=== PATIENT | female | born 1945 | race Caucasian/White ===

== ENCOUNTER → 2016-11-09 | Outpatient (CLI) | payer MEDICARE, BC ==
--- NOTE | 2016-11-10 11:25 | MM ---
Reason for exam: screening (asymptomatic). Last mammogram was performed 1 year ago. History: Patient is postmenopausal and history of other cancer. Family history of breast cancer in paternal aunt at age 40 and breast cancer in paternal grandmother at age 80. Benign stereotactic core biopsy of the right breast, November 05, 2004. Benign stereotactic core biopsy of the right breast, December 14, 2001. Benign excisional biopsy of the left breast. Benign excisional biopsy of the right breast. Took estrogen for 12 years. Physical Findings: A clinical breast exam by your physician is recommended on an annual basis and results should be correlated with mammographic findings. MG 3D Screening Mammo W/Cad Bilateral CC and MLO view(s) were taken. Prior study comparison: November 03, 2015, bilateral MG 3d diag mammo w/cad LUIS. September 19, 2014, bilateral MG screening mammo w CAD. The breast tissue is extremely dense which could obscure a lesion on mammography. Previous mammotome biopsy in the right breast x 2. No significant changes when compared with prior studies. ASSESSMENT: Benign, BI-RAD 2 RECOMMENDATION: Routine screening mammogram of both breasts in 1 year.
== END | disposition home or self-care (01) ==
LOC: RADMAMWWP 13:39
PROVIDERS: ATTEND Family Medicine
DX: Z12.31 Encounter for screening mammogram for malignant neoplasm of breast (principal)
CPT/HCPCS: 77063; G0202

== ENCOUNTER 2017-01-11 07:21 | Day surgery (SDC) | payer MEDICARE, BC ==
[2017-01-09 14:51] VITALS: BMI 27.3
[~2017-01-11 07:21] MED LIST: LACTATED RINGERS 1,000 ML IV SCH; LIDOCAINE 1% 20 ML VIAL (10MG/ML) FOR IV START INTRADERMA PRN
[2017-01-11 07:35] VITALS: TEMP 97
[2017-01-11] MEDS ORDERED: LIDOCAINE 1% INJ 10MG/ML (20 ML MDV) ONE (08:20)
[2017-01-11] MEDS ORDERED: GLYCOPYRROLATE 0.2 MG/ML 2 ML VIAL ONE (08:20)
[2017-01-11] MEDS ORDERED: PROPOFOL 10 MG/ML 20 ML VIAL IV ONE (08:20)
--- NOTE | 2017-01-11 08:33 | P.PCN ---
Date of Procedure: 01/11/17 Procedure(s) Performed: BRIEF HISTORY: Patient is a 71-year-old, pleasant, white female, scheduled for an upper endoscopy with possible dilation as a part of evaluation of long- standing history of GERD as well as intermittent dysphagia to solids for the last few months duration. She is been on Prilosec 20 mg daily with some relief in her heartburn.. PROCEDURE PERFORMED: Esophagogastroduodenoscopy and biopsy and dilation. PREOPERATIVE DIAGNOSIS: GERD and intermittent dysphagia to solids. IV sedation per anesthesia. PROCEDURE: After informed consent was obtained, the patient was brought into the endoscopy unit. IV sedation was administered by Anesthesia under continuous monitoring. Initially the Olympus GIF-140 video endoscope was inserted into the mouth. Esophagus intubated without any difficulty. It was gradually advanced into the stomach and duodenum and carefully examined. The bulb and the second part of the duodenum appeared normal. The scope at this time was withdrawn to the stomach, adequately insufflated with air, and upon careful examination, mucosa of the antrum, body, cardia and the fundus appeared normal. The scope was then withdrawn into the esophagus. A small sliding Hiatal hernia noted. The GE junction was located at 39 cm from the incisors. There was a distal esophageal Schatzki's ring noted and this was dilated using 15-18 mm TTS balloon for 1 minute. The esophagus appeared normal. Sr. done from esophagus to rule out eosinophilic esophagitis. There were no erosions or ulcerations seen and the patient tolerated the procedure well. IMPRESSION: 1. Distal esophageal Schatzki's ring status post balloon dilation using 15 mm TTS balloon as described. 2. Small hiatal hernia. RECOMMENDATIONS: The findings of this examination were discussed with the patient as well as a family. She was advised to follow with the biopsy results. In the meantime she'll continue with Prilosec 20 mg daily and follow antireflux measures..
[2017-01-11 08:38] VITALS: RESP 16
[2017-01-11 08:55] VITALS: BP 122/64; PULSE 64
== END 2017-01-11 09:14 | disposition home or self-care (01) ==
LOC: ORWHC2ENDO 07:21
PROVIDERS: ATTEND Internal Medicine Gastroenterology
DX: K22.2 Esophageal obstruction (principal); K44.9 Diaphragmatic hernia without obstruction or gangrene; K21.9 Gastro-esophageal reflux disease without esophagitis; I10 Essential (primary) hypertension; I48.91 Unspecified atrial fibrillation; E07.9 Disorder of thyroid, unspecified; Z79.82 Long term (current) use of aspirin; Z79.899 Other long term (current) drug therapy; Z88.5 Allergy status to narcotic agent
CPT/HCPCS: 88305; 43239; 43249; J2001; J2704; C1726

== ENCOUNTER → 2018-04-19 | Outpatient (CLI) | payer MEDICARE, BC ==
--- NOTE | 2018-04-20 13:12 | BD ---
EXAMINATION TYPE: Axial Bone Density DATE OF EXAM: 04/19/2018 COMPARISON: 11.03.2015 CLINICAL HISTORY: 73 YR OLD FEMALE.....ICD-10 CODE: Z78.0 MENOPAUSAL STATE Height: 59.5 Weight: 140 FRAX RISK QUESTIONS: History of Fracture in Adulthood: YES RISK FACTORS HISTORY OF: HX OF FOOT FXs SINCE AGE 50 Surgery to Spine YES, LUMBAR FUSION, L4 AND L5 AT AGE 71 Diet low in dairy products/other sources of calcium: NO Postmenopausal woman: YES, AT AGE 50 Take estrogen and/or progesterone medications: IN THE PAST...FOR 12 YRS MEDICATIONS: Thyroid Medications: YES, SYNTHROID, FOR ABOUT 1 YR Additional Medications: CALCIUM, MAGNESIUM, BP MEDS, XANAX PRN, VIT D Additional History: HYPERTENSION, BACK TROUBLE EXAM MEASUREMENTS: Bone mineral densitometry was performed using the [employer] System. SPINE NOT SCANNED, FUSION Bone mineral density about the R hip (g/cm2): 1.155 Bone mineral density about the L hip (g/cm2): 1.193 T Score values are as follows: -----R Neck: -0.2 -----L Neck: 0.0 -----R Total: 1.2 -----L Total: 1.5 Bone mineral density has: Increased 0.1% since study of: 11.03.2015 Bone mineral density about the L Wrist (g/cm2): 0.634 T Score values are as follows: -----Dist. R+U: 0.0 -----Prox. R+U: -0.7 -----Radius total: -0.5 Bone mineral density FIRST SCAN OF HER FOREARM FRAX%s: THERE IS A 12.2% CHANCE OF A MAJOR OSTEOPOROTIC FX AND A 0.9% FOR HIP FX.....PROBABILITY OF FX IN 10 YRS TIME IMPRESSION: Normal (Values between +1 and -1 indicate normal bone mass). Consider repeating this study in 5 years or sooner if there is some new clinical indication. NOTE: T-SCORE=SD OF THE YOUNG ADULT MEAN.
--- NOTE | 2018-04-24 09:11 | MM ---
Reason for exam: screening (asymptomatic). Last mammogram was performed 1 year and 5 months ago. History: Patient is postmenopausal and history of other cancer. Family history of breast cancer in paternal aunt at age 40 and breast cancer in paternal grandmother at age 80. Benign stereotactic core biopsy of the right breast, November 05, 2004. Benign stereotactic core biopsy of the right breast, December 14, 2001. Benign excisional biopsy of the left breast. Benign excisional biopsy of the right breast. Took estrogen for 12 years. Physical Findings: A clinical breast exam by your physician is recommended on an annual basis and results should be correlated with mammographic findings. MG 3D Screening Mammo W/Cad Bilateral CC and MLO view(s) were taken. Prior study comparison: November 09, 2016, bilateral MG 3d screening mammo w/cad. November 03, 2015, bilateral MG 3d diag mammo w/cad LUIS. The breast tissue is heterogeneously dense. This may lower the sensitivity of mammography. Post biopsy change x 2 on the right. No significant changes when compared with prior studies. ASSESSMENT: Negative, BI-RAD 1 RECOMMENDATION: Routine screening mammogram of both breasts in 1 year.
== END | disposition home or self-care (01) ==
LOC: RADMAMWWP 14:00
PROVIDERS: ATTEND Family Medicine
DX: Z12.31 Encounter for screening mammogram for malignant neoplasm of breast (principal); Z78.0 Asymptomatic menopausal state
CPT/HCPCS: 77063; 77067; 77080

== ENCOUNTER → 2018-12-07 | Outpatient (CLI) | payer MEDICARE, BC ==
--- NOTE | 2018-12-08 08:31 | MR ---
MR left hip HISTORY: Left hip pain Multiplanar multisequence imaging through the pelvis with small [id number] images through the left hip No comparisons There is abnormal signal at the expected insertion of the gluteus tendons at the greater trochanter. Fluid signal is noted, hyperintensity and T2-weighted sequences. Bone marrow signal is maintained. No evident joint effusion. Degenerative disc changes are noted incidentally in the lumbar spine, there is artifact due to patient's posterior fusion. No significant free fluid within the pelvis. Uterus an d adnexal structures are not seen. Urinary bladder is unremarkable. Articular cartilage signal is irena ntained. Artifact is present. Difficult to exclude labral tear on this noncontrast exam. No adenopath y. IMPRESSION: Findings compatible with gluteus tendon tears at the expected site of insertion on the gr eater trochanter, trochanteric bursitis
== END ==
LOC: RADMRIMAIN 08:19
PROVIDERS: ATTEND Midwife
DX: M70.62 Trochanteric bursitis, left hip (principal)

== ENCOUNTER → 2019-05-02 | Outpatient (CLI) | payer MEDICARE, BC ==
--- NOTE | 2019-05-07 09:40 | MM ---
Reason for exam: screening (asymptomatic). Last mammogram was performed 1 year ago. History: Patient is postmenopausal and history of other cancer. Family history of breast cancer in paternal aunt at age 40 and breast cancer in paternal grandmother at age 80. Benign stereotactic core biopsy of the right breast, November 05, 2004. Benign stereotactic core biopsy of the right breast, December 14, 2001. Benign excisional biopsy of the left breast. Benign excisional biopsy of the right breast. Took estrogen for 12 years. Physical Findings: A clinical breast exam by your physician is recommended on an annual basis and results should be correlated with mammographic findings. MG 3D Screening Mammo W/Cad Bilateral CC and MLO view(s) were taken. Prior study comparison: April 19, 2018, bilateral MG 3d screening mammo w/cad. November 09, 2016, bilateral MG 3d screening mammo w/cad. The breast tissue is extremely dense which could obscure a lesion on mammography. Previous mammotome biopsy in the right breast. No significant changes when compared with prior studies. ASSESSMENT: Benign, BI-RAD 2 RECOMMENDATION: Routine screening mammogram of both breasts in 1 year.
== END | disposition home or self-care (01) ==
LOC: RADMAMWWP 09:10
PROVIDERS: ATTEND Family Medicine
DX: Z12.31 Encounter for screening mammogram for malignant neoplasm of breast (principal)
CPT/HCPCS: 77063; 77067

== ENCOUNTER 2019-07-28 01:33 | Emergency (ER) | payer MEDICARE, BC ==
[2019-07-28 01:38] VITALS: TEMP 97.6
--- NOTE | 2019-07-28 02:23 | ED ---
Arrhythmia/Palpitations HPI - General Chief Complaint: Arrhythmia/Palpitations Stated Complaint: A Fib Time Seen by Provider: 07/28/19 01:40 Source: patient Mode of arrival: ambulatory Limitations: no limitations - History of Present Illness Initial Comments: This patient is 74-year-old woman who presents to be evaluated for which she believes is a recurrence of atrial fibrillation. The patient has had previous episodes of atrial fibrillation and has seen cardiology. She states that tonight approximately 3 hours ago she felt her heart start skipping beats and beating irregularly. She had taken an extra dose of metoprolol per her physician's instruction. When the symptoms did not improve she felt she should be evaluated here. Patient denies chest pain. No other symptoms. MD Complaint: palpitations, irregular heart beat Onset/Timin -: hour(s) Context: occurred during rest Arrhythmia History: atrial fibrillation Associated Symptoms: denies other symptoms Treatments Prior to Arrival: beta-yolanda - Related Data Home Medications Medication Instructions Recorded Confirmed ALPRAZolam [Xanax] 0.5 mg PO HS 03/28/14 01/11/17 Hydrochlorothiazide [Hydrodiuril] 50 mg PO DAILY 03/28/14 01/11/17 Metoprolol Tartrate [Lopressor] 50 mg PO BID 03/28/14 01/11/17 Aspirin 325 mg PO HS 08/12/14 01/11/17 Calcium + Magnesium 1 tab PO BID 01/09/17 01/11/17 Cholecalciferol [Vitamin D3] 5,000 unit PO DAILY 01/09/17 01/11/17 Co Q-10 Tab 220 mg PO DAILY 01/09/17 01/11/17 Digoxin [Digitek] 125 mcg PO DAILY 01/09/17 01/11/17 Levothyroxine Sodium [Synthroid] 50 mcg PO DAILY 01/09/17 01/11/17 Omeprazole [PriLOSEC] 40 mg PO DAILY 01/09/17 01/11/17 Potassium Chloride [K-Tab ER] 10 meq PO DAILY 01/09/17 01/11/17 Provitality 1 tab PO DAILY 01/09/17 01/11/17 [place] Oil 1 tab PO BID 01/09/17 01/11/17 Sennosides [Senokot] 25.8 mg PO DAILY 01/09/17 01/11/17 Turmeric(Dose Unknown) 4 cap PO DAILY 01/09/17 01/11/17 Allergies Allergy/AdvReac Type Severity Reaction Status Date / Time acetaminophen [From [place]] Allergy Rash/Hives Verified 07/28/19 01:38 hydrocodone [From [place]] Allergy Rash/Hives Verified 07/28/19 01:38 hydromorphone HCl Allergy Rash/Hives Verified 07/28/19 01:38 [From Dilaudid] Review of Systems ROS Statement: Those systems with pertinent positive or pertinent negative responses have been documented in the HPI. ROS Other: All systems not noted in ROS Statement are negative. Constitutional: Denies: fever, chills, weakness Respiratory: Denies: cough, dyspnea Cardiovascular: Reports: palpitations. Denies: chest pain, orthopnea, edema, syncope Gastrointestinal: Denies: abdominal pain, vomiting Genitourinary: Denies: dysuria, hematuria Musculoskeletal: Denies: back pain Skin: Denies: rash Neurological: Denies: headache Past Medical History Past Medical History: Atrial Fibrillation, Cancer, Deep Vein Thrombosis (DVT), GERD/Reflux, Hyperlipidemia, Hypertension, Osteoarthritis (OA), Skin Disorder, Thyroid Disorder Additional Past Medical History / Comment(s): SKIN CANCER History of Any Multi-Drug Resistant Organisms: None Reported Past Surgical History: Adenoidectomy, Breast Surgery, Hysterectomy, Orthopedic Surgery, Tonsillectomy Additional Past Surgical History / Comment(s): demetris breast biopsy(open), trigger finger release- rt thumb, rt carpal tunnel, rt thumb tendon transfer, demetris oophorectomy, demetris salpingectomy, rt shoulder rotator cuff, demetris knee replacement (left x 2 ), lumbar fusion L4-L5 with decompression Past Anesthesia/Blood Transfusion Reactions: Motion Sickness, Postoperative Nausea & Vomiting (PONV) Past Psychological History: No Psychological Hx Reported Smoking Status: Never smoker Past Alcohol Use History: None Reported Past Drug Use History: None Reported - Past Family History Brother(s) Family Medical History: Cancer Sister(s) Family Medical History: Cancer General Exam Limitations: no limitations General appearance: alert, in no apparent distress Head exam: Present: atraumatic, normocephalic Eye exam: Present: normal appearance. Absent: scleral icterus, conjunctival injection ENT exam: Present: normal oropharynx Neck exam: Present: normal inspection Respiratory exam: Present: normal lung sounds bilaterally. Absent: respiratory distress, wheezes, rales, rhonchi, stridor Cardiovascular Exam: Present: irregular rhythm, normal heart sounds. Absent: systolic murmur, diastolic murmur, rubs, gallop GI/Abdominal exam: Present: soft. Absent: distended, tenderness, guarding, rebound, mass Extremities exam: Present: normal inspection, normal capillary refill. Absent: pedal edema, calf tenderness Neurological exam: Present: alert Skin exam: Present: warm, dry, intact, normal color. Absent: rash Course Vital Signs 07/28/19 07/28/19 07/28/19 01:36 01:38 02:38 Temperature 97.6 F Pulse Rate 95 78 75 Respiratory 20 18 Rate Blood Pressure 134/87 116/98 117/72 O2 Sat by Pulse 97 97 97 Oximetry 07/28/19 07/28/19 03:00 04:21 Temperature Pulse Rate 77 59 L Respiratory 18 16 Rate Blood Pressure 118/71 118/66 O2 Sat by Pulse 98 99 Oximetry EKG Findings - EKG Results: EKG: interpreted by ANITRA, normal axis, normal QRS, normal ST/T EKG shows: atrial fibrillation (Rare proximal to 73 bpm) Medical Decision Making - Medical Decision Making Patient 74-year-old woman with. His atrial fibrillation who appears to have had a recurrence. Her initial workup is unremarkable. We were going to administer dose of Sarah and denied when she did spontaneously reverted to sinus rhythm. She declined repeat ECG, and it wants go home. She does seem stable for this. She'll follow with cardiology and return should any symptoms recur. - Lab Data Result diagrams: 07/28/19 01:50 07/28/19 01:50 Lab Results 07/28/19 07/28/19 07/28/19 Range/Units 01:50 01:50 01:50 WBC 8.1 (3.8-10.6) k/uL RBC 5.14 (3.80-5.40) m/uL Hgb 15.1 (11.4-16.0) gm/dL Hct 45.5 (34.0-46.0) % MCV 88.5 (80.0-100.0) fL MCH 29.3 (25.0-35.0) pg MCHC 33.1 (31.0-37.0) g/dL RDW 13.2 (11.5-15.5) % Plt Count 292 (150-450) k/uL Neutrophils % 53 % Lymphocytes % 33 % Monocytes % 8 % Eosinophils % 4 % Basophils % 1 % Neutrophils # 4.3 (1.3-7.7) k/uL Lymphocytes # 2.7 (1.0-4.8) k/uL Monocytes # 0.6 (0-1.0) k/uL Eosinophils # 0.3 (0-0.7) k/uL Basophils # 0.1 (0-0.2) k/uL PT 10.1 (9.0-12.0) sec INR 0.9 (<1.2) APTT 28.0 (22.0-30.0) sec Sodium 141 (137-145) mmol/L Potassium 3.5 (3.5-5.1) mmol/L Chloride 102 (98-107) mmol/L Carbon Dioxide 30 (22-30) mmol/L Anion Gap 9 mmol/L BUN 19 H (7-17) mg/dL Creatinine 0.65 (0.52-1.04) mg/dL Est GFR (CKD-EPI)AfAm >90 (>60 ml/min/1.73 sqM) Est GFR (CKD-EPI)NonAf 88 (>60 ml/min/1.73 sqM) Glucose 108 H (74-99) mg/dL Calcium 10.0 (8.4-10.2) mg/dL Magnesium 1.9 (1.6-2.3) mg/dL Total Bilirubin 0.4 (0.2-1.3) mg/dL AST 24 (14-36) U/L ALT 29 (9-52) U/L Alkaline Phosphatase 97 (38-126) U/L Troponin I (0.000-0.034) ng/mL Total Protein 7.1 (6.3-8.2) g/dL Albumin 4.4 (3.5-5.0) g/dL TSH 8.340 H (0.465-4.680) mIU/L 07/28/19 Range/Units 01:50 WBC (3.8-10.6) k/uL RBC (3.80-5.40) m/uL Hgb (11.4-16.0) gm/dL Hct (34.0-46.0) % MCV (80.0-100.0) fL MCH (25.0-35.0) pg MCHC (31.0-37.0) g/dL RDW (11.5-15.5) % Plt Count (150-450) k/uL Neutrophils % % Lymphocytes % % Monocytes % % Eosinophils % % Basophils % % Neutrophils # (1.3-7.7) k/uL Lymphocytes # (1.0-4.8) k/uL Monocytes # (0-1.0) k/uL Eosinophils # (0-0.7) k/uL Basophils # (0-0.2) k/uL PT (9.0-12.0) sec INR (<1.2) APTT (22.0-30.0) sec Sodium (137-145) mmol/L Potassium (3.5-5.1) mmol/L Chloride (98-107) mmol/L Carbon Dioxide (22-30) mmol/L Anion Gap mmol/L BUN (7-17) mg/dL Creatinine (0.52-1.04) mg/dL Est GFR (CKD-EPI)AfAm (>60 ml/min/1.73 sqM) Est GFR (CKD-EPI)NonAf (>60 ml/min/1.73 sqM) Glucose (74-99) mg/dL Calcium (8.4-10.2) mg/dL Magnesium (1.6-2.3) mg/dL Total Bilirubin (0.2-1.3) mg/dL AST (14-36) U/L ALT (9-52) U/L Alkaline Phosphatase (38-126) U/L Troponin I <0.012 (0.000-0.034) ng/mL Total Protein (6.3-8.2) g/dL Albumin (3.5-5.0) g/dL TSH (0.465-4.680) mIU/L Disposition Clinical Impression: Atrial fibrillation Disposition: HOME SELF-CARE Condition: Good Instructions (If sedation given, give patient instructions): A-fib (Atrial Fibrillation) (DC) Is patient prescribed a controlled substance at d/c from ED?: No Referrals: Mejia Womack MD [Primary Care Provider] - 1-2 days
[2019-07-28 02:29] LABS: Basophils # (A) 0.1 k/uL (0-0.2); Basophils % (A) 1 %; Eosinophils # (A) 0.3 k/uL (0-0.7); Eosinophils % (A) 4 %; HCT 45.5 % (34.0-46.0); HGB 15.1 gm/dL (11.4-16.0); Lymphocytes # (A) 2.7 k/uL (1.0-4.8); Lymphocytes % (A) 33 %; MCH 29.3 pg (25.0-35.0); MCHC 33.1 g/dL (31.0-37.0); MCV 88.5 fL (80.0-100.0); Mean Platelet Volume 7.1; Monocytes # (A) 0.6 k/uL (0-1.0); Monocytes % (A) 8 %; Neutrophils # (A) 4.3 k/uL (1.3-7.7); Neutrophils % (A) 53 %; Platelet Count 292 k/uL (150-450); RBC 5.14 m/uL (3.80-5.40); RDW 13.2 % (11.5-15.5); WBC 8.1 k/uL (3.8-10.6)
--- NOTE | 2019-07-28 02:34 | XR ---
EXAMINATION TYPE: XR chest 1V portable DATE OF EXAM: 07/28/2019 COMPARISON: September 12, 2011 HISTORY: Dysrhythmia TECHNIQUE: Single frontal view of the chest is obtained. FINDINGS: Heart and mediastinum are normal. Lungs are clear. Diaphragm is normal. Bony thorax appear s normal. There are chest leads. IMPRESSION: Normal chest. No change.
[2019-07-28 02:36] LABS: INR 0.9 (<1.2); Prothrombin Time 10.1 sec (9.0-12.0)
[2019-07-28 02:37] LABS: ALT 29 U/L (9-52); AST 24 U/L (14-36); African American GFR (CKD) >90 (>60 ml/min/1.73 sqM); Albumin 4.4 g/dL (3.5-5.0); Alkaline Phosphatase 97 U/L (38-126); Anion Gap 9 mmol/L; Blood Urea Nitrogen 19 mg/dL (7-17); Carbon Dioxide 30 mmol/L (22-30); Chloride 102 mmol/L (98-107); Glucose 108 mg/dL (74-99); Magnesium 1.9 mg/dL (1.6-2.3); Non-African American GFR(CKD) 88 (>60 ml/min/1.73 sqM); Potassium 3.5 mmol/L (3.5-5.1); Sodium 141 mmol/L (137-145); Total Bilirubin 0.4 mg/dL (0.2-1.3); Total Protein 7.1 g/dL (6.3-8.2)
[2019-07-28] MEDS ORDERED: FLECAINIDE 50 MG TAB PO STA (03:44)
[2019-07-28 04:22] VITALS: BP 118/66; PULSE 59; RESP 16
== END 2019-07-28 04:23 | disposition home or self-care (01) ==
LOC: EC 01:33
DX: I48.91 Unspecified atrial fibrillation (principal); I10 Essential (primary) hypertension; E78.5 Hyperlipidemia, unspecified; E07.9 Disorder of thyroid, unspecified; M19.90 Unspecified osteoarthritis, unspecified site; K21.9 Gastro-esophageal reflux disease without esophagitis; Z79.82 Long term (current) use of aspirin; Z79.890 Hormone replacement therapy; Z79.899 Other long term (current) drug therapy; Z88.5 Allergy status to narcotic agent; Z88.6 Allergy status to analgesic agent; Z86.718 Personal history of other venous thrombosis and embolism; Z85.828 Personal history of other malignant neoplasm of skin; Z96.653 Presence of artificial knee joint, bilateral; Z98.1 Arthrodesis status
CPT/HCPCS: 36415; 71045; 80053; 83735; 84443; 84484; 85025; 85610; 85730; 93005; 99285

== ENCOUNTER → 2020-05-07 | Outpatient (CLI) | payer MEDICARE, BC ==
--- NOTE | 2020-05-07 12:38 | ECHOF ---
Referral Reason:I48.91 Atrial fibirlation MEASUREMENTS -------- HEIGHT: 152.4 cm WEIGHT: 65.8 kg BP: RVIDd: 2.9 cm (< 3.3) IVSd: 1.0 cm (0.6 - 1.1) LVIDd: 4.0 cm (3.9 - 5.3) LVPWd: 0.9 cm (0.6 - 1.1) IVSs: 1.1 cm LVIDs: 3.0 cm LVPWs: 1.1 cm LA Diam: 4.1 cm (2.7 - 3.8) LAESV Index (A-L): 30.30 ml/m Ao Diam: 2.6 cm (2.0 - 3.7) AV Cusp: 1.6 cm (1.5 - 2.6) LA Diam: 3.9 cm (2.7 - 3.8) MV EXCURSION: 17.918 mm (> 18.000) MV EF SLOPE: 52 mm/s (70 - 150) EPSS: 0.4 cm MV E Cliff: 0.63 m/s MV DecT: 186 ms MV A Cliff: 0.92 m/s MV E/A Ratio: 0.69 RAP: 5.00 mmHg RVSP: 22.27 mmHg FINDINGS -------- Sinus rhythm. This was a technically good study. LV size, wall thickness and systolic function are normal, with an EF greater than 55%. The left mercy tricular size is normal. The right ventricle is normal in size. The left atrium is mildly dilated. LA is midly dilated 29-33ml/m2. The right atrial size is normal. The aortic valve is trileaflet, and appears structurally normal. No aortic stenosis or regurgitation. Mild mitral regurgitation is present. Mild tricuspid regurgitation present. Right ventricular systolic pressure is normal at < 35 mmHg. There is no pulmonic regurgitation present. The aortic root size is normal. There is no pericardial effusion. CONCLUSIONS -------- 1. LV size, wall thickness and systolic function are normal, with an EF greater than 55%. 2. The left ventricular size is normal. 3. The right ventricle is normal in size. 4. The left atrium is mildly dilated. 5. LA is midly dilated 29-33ml/m2. 6. The right atrial size is normal. 7. Mild mitral regurgitation is present. 8. Mild tricuspid regurgitation present. 9. There is no pulmonic regurgitation present. 10. The aortic root size is normal. JOWL TRIMMER: America Viveros RDCS
== END | disposition home or self-care (01) ==
LOC: RADECHMAIN 11:24
PROVIDERS: ATTEND Internal Medicine Cardiovascular Disease
DX: I08.1 Rheumatic disorders of both mitral and tricuspid valves (principal)
CPT/HCPCS: 93306

== ENCOUNTER → 2020-06-19 | Outpatient (CLI) | payer MEDICARE, BC ==
--- NOTE | 2020-06-22 11:26 | MM ---
Reason for exam: screening (asymptomatic). Last mammogram was performed 1 year and 2 months ago. History: Patient is postmenopausal and history of other cancer. Family history of breast cancer in paternal aunt at age 40 and breast cancer in paternal grandmother at age 80. Benign stereotactic core biopsy of the right breast, November 05, 2004. Benign stereotactic core biopsy of the right breast, December 14, 2001. Benign excisional biopsy of the left breast. Benign excisional biopsy of the right breast. Took estrogen for 12 years. Physical Findings: A clinical breast exam by your physician is recommended on an annual basis and results should be correlated with mammographic findings. MG 3D Screening Mammo W/Cad Bilateral CC and MLO view(s) were taken. Prior study comparison: May 02, 2019, bilateral MG 3d screening mammo w/cad. April 19, 2018, bilateral MG 3d screening mammo w/cad. The breast tissue is heterogeneously dense. This may lower the sensitivity of mammography. Previous mammotome biopsy in the right breast x 2. There is chronic nodularity in the right breast laterally at the site of a biopsy clip. Scattered round and punctate calcifications are unchanged. No significant changes when compared with prior studies. ASSESSMENT: Benign, BI-RAD 2 RECOMMENDATION: Routine screening mammogram of both breasts in 1 year.
== END | disposition home or self-care (01) ==
LOC: RADMAMWWP 11:00
PROVIDERS: ATTEND Family Medicine
DX: Z12.31 Encounter for screening mammogram for malignant neoplasm of breast (principal)
CPT/HCPCS: 77063; 77067

== ENCOUNTER → 2021-07-09 | Outpatient (CLI) | payer MEDICARE ==
--- NOTE | 2021-07-12 10:45 | MM ---
Reason for exam: screening (asymptomatic). Last mammogram was performed 1 year and 1 month ago. History: Patient is postmenopausal and history of other cancer. Family history of breast cancer in paternal aunt at age 40 and breast cancer in paternal grandmother at age 80. Benign stereotactic core biopsy of the right breast, November 05, 2004. Benign stereotactic core biopsy of the right breast, December 14, 2001. Benign excisional biopsy of the left breast. Benign excisional biopsy of the right breast. Took hormonal contraceptives for 35 years. Took estrogen for 12 years. Physical Findings: A clinical breast exam by your physician is recommended on an annual basis and results should be correlated with mammographic findings. MG 3D Screening Mammo W/Cad Bilateral CC and MLO view(s) were taken. Prior study comparison: June 19, 2020, bilateral MG 3d screening mammo w/cad. May 02, 2019, bilateral MG 3d screening mammo w/cad. The breast tissue is heterogeneously dense. This may lower the sensitivity of mammography. Benign appearing bilateral calcifications. Previous mammotome biopsy in the right breast. There is chronic nodularity in the right breast, stable. Stable post biopsy changes. ASSESSMENT: Benign, BI-RAD 2 RECOMMENDATION: Routine screening mammogram of both breasts in 1 year.
== END | disposition home or self-care (01) ==
LOC: RADMAMWWP 16:21
PROVIDERS: ATTEND Nurse Practitioner
DX: Z12.31 Encounter for screening mammogram for malignant neoplasm of breast (principal)
CPT/HCPCS: 77063; 77067

== ENCOUNTER → 2022-07-11 | Outpatient (CLI) | payer MEDICARE ==
--- NOTE | 2022-07-12 17:18 | MM ---
Reason for Exam: Screening (asymptomatic). Last screening mammogram was performed 12 month(s) ago. Patient History: Menarche at age 11. First Full-Term at age 23. Left ovary removed at age 69. Right ovary removed at age 69. Hysterectomy at age 37. Postmenopausal. Patient has history of breast feeding. Patient used Estrogen for 12 years. Patient used Hormonal Contraceptives for 35 years. Benign Excisional Biopsy on the right side. Benign Excisional Biopsy on the left side. 11/05/2004, Benign Stereotactic Core Biopsy on the right side. 12/14/2001, Benign Stereotactic Core Biopsy on the right side. Paternal grandmother had breast cancer, age 80. Paternal aunt had breast cancer, age 40. Risk Values: Becka 5 year model risk: 2.6%. NCI Lifetime model risk: 4.9%. Prior Study Comparison: 05/04/1995 Screening Mammogram, Unknown. 04/07/2014 Left Diagnostic Mammogram, [facility]. 09/19/2014 Bilateral Screening Mammogram, [facility]. 11/03/2015 Bilateral Diagnostic Mammogram, [facility]. 11/09/2016 Bilateral Screening Mammogram, [facility]. 04/19/2018 Bilateral Screening Mammogram, [facility]. 05/02/2019 Bilateral Screening Mammogram, [facility]. 06/19/2020 Bilateral Screening Mammogram, [facility]. 07/09/2021 Bilateral Screening Mammogram, [facility]. Tissue Density: The breast tissue is heterogeneously dense. This may lower the sensitivity of mammography. Findings: Analyzed By CAD. Complex pattern appears stable. Core markers within the right breast. There are a few scattered benign appearing calcifications present. Vascular calcification is present bilaterally. There may be some developing distortion within the left medial lateral oblique view. Additional diagnostic imaging with compression mediolateral view is recommended. Overall Assessment: Incomplete: need additional imaging evaluation, BI-RAD 0 Management: Diagnostic Mammogram of the left breast. A negative mammogram report should not preclude additional follow up of suspicious palpable abnormalities. Patient should continue monthly self breast exam. A clinical breast exam by your physician is recommended on an annual basis and results should be correlated with mammographic findings. Electronically signed and approved by: Ran Leal D.O. Radiologis
== END | disposition home or self-care (01) ==
LOC: RADMAMWWP 10:02
PROVIDERS: ATTEND Family Medicine
DX: Z12.31 Encounter for screening mammogram for malignant neoplasm of breast (principal); Z80.3 Family history of malignant neoplasm of breast; Z78.0 Asymptomatic menopausal state; Z98.890 Other specified postprocedural states
CPT/HCPCS: 77063; 77067

== ENCOUNTER → 2022-07-15 | Outpatient (CLI) | payer MEDICARE ==
--- NOTE | 2022-07-15 15:22 | MM ---
Reason for Exam: Additional evaluation requested from abnormal screening. Last screening mammogram was performed less than 1 month ago. Patient History: Menarche at age 11. First Full-Term at age 23. Left ovary removed at age 69. Right ovary removed at age 69. Hysterectomy at age 37. Postmenopausal. Patient has history of breast feeding. Patient used Estrogen for 12 years. Patient used Hormonal Contraceptives for 35 years. Benign Excisional Biopsy on the right side. Benign Excisional Biopsy on the left side. 11/05/2004, Benign Stereotactic Core Biopsy on the right side. 12/14/2001, Benign Stereotactic Core Biopsy on the right side. Paternal grandmother had breast cancer, age 80. Paternal aunt had breast cancer, age 40. Risk Values: Becka 5 year model risk: 2.6%. NCI Lifetime model risk: 4.9%. Prior Study Comparison: 06/19/2020 Bilateral Screening Mammogram, [facility]. 07/09/2021 Bilateral Screening Mammogram, [facility]. 07/11/2022 Bilateral MG 3D screening mammo w/cad, [facility]. Tissue Density: Left: The breast tissue is heterogeneously dense. This may lower the sensitivity of mammography. Findings: Analyzed By CAD. No distinct mass or distortion seen. Overall Assessment: Negative, BI-RAD 1 Management: Screening Mammogram of both breasts in 1 year. A clinical breast exam by your physician is recommended on an annual basis and results should be correlated with mammographic findings. This exam should not preclude additional follow-up of suspicious palpable abnormalities. Results were given to the patient verbally at the time of exam. Electronically signed and approved by: Blas Kasper M.D. Radiologis
== END | disposition home or self-care (01) ==
LOC: RADMAMWWP 14:51
PROVIDERS: ATTEND Family Medicine
DX: R92.8 Other abnormal and inconclusive findings on diagnostic imaging of breast (principal); Z78.0 Asymptomatic menopausal state; Z80.3 Family history of malignant neoplasm of breast; Z90.721 Acquired absence of ovaries, unilateral
CPT/HCPCS: 77065; G0279; 77061

== ENCOUNTER → 2022-09-15 | Outpatient (CLI) | payer MEDICARE ==
--- NOTE | 2022-09-15 18:58 | BD ---
EXAMINATION TYPE: Axial Bone Density DATE OF EXAM: 09/15/2022 COMPARISON: 04/19/2018 CLINICAL HISTORY: 77 years year old Female. ICD-10 CODE: Z78.0 ASYMPTOMATIC MENOPAUSAL Height: 59.5 Weight: 152 LBS FRAX RISK QUESTIONS: History of Fracture in Adulthood: RT WRIST AGE 12; RT FOOT AGE 67; Secondary Osteoporosis: 3. Menopause before 45: PARTIAL HYST AGE 37; TOTAL HYST AGE 67 RISK FACTORS HISTORY OF: History of Wrist Fracture: RT WRIST AGE 12 Surgery to Spine: FUSION L3-4 AGE 71 Active: YES Postmenopausal woman: PARTIAL HYST AGE 37; TOTAL HYST AGE 67 Take estrogen and/or progesterone medications: NOT NOW How lon YEARS MEDICATIONS: Thyroid Medications: YES Which medication: Levothyroxine How Lon YEARS Additional Medications: CALCIUM, VIT D, LEVOTHYROXINE,ELIQUIS, HCTZ, LOPRESSOR, LISINOPRIL, TURMERIC , SALMON OIL, MULTI VIT, SENNA, BLOOD PRESSURE , EYE SUPPLEMENT EXAM MEASUREMENTS: Bone mineral densitometry was performed using the [employer] System. L SPINE FUSION Bone mineral density about the R hip (g/cm2): 1.009 Bone mineral density about the L hip (g/cm2): 1.034 T Score values are as follows: -----R Neck: -0.2 -----L Neck: 0.0 -----R Total: 0.9 -----L Total: 1.2 Bone mineral density has: Decreased -2.5% since study of: 04/19/2018 Bone mineral density about the L Wrist (g/cm2): 0.619 T Score values are as follows: -----Dist. R+U: -1.0 -----Prox. R+U: -1.3 -----Radius total: -0.9 Bone mineral density has: Decreased -6.1% since study of: 04/19/2018 FRAX%s: The graph provided illustrates a 12.6 chance for a major osteoporotic fx and a 1.2 chance for the hips probability for fx in 10 years time. IMPRESSION: Osteopenia (T Score between -2.5 and -1). There is slightly increased risk of fracture and the patient may be considered for treatment. Re-Screen 2-5 years. NOTE: T-SCORE=SD OF THE YOUNG ADULT MEAN.
== END | disposition home or self-care (01) ==
LOC: RADBDWWP 16:10
PROVIDERS: ATTEND Family Medicine
DX: M85.89 Other specified disorders of bone density and structure, multiple sites (principal); Z78.0 Asymptomatic menopausal state
CPT/HCPCS: 77080

== ENCOUNTER → 2023-02-02 | Outpatient (CLI) | payer MEDICARE ==
--- NOTE | 2023-02-02 15:19 | CT ---
EXAMINATION TYPE: CT heart w calcium score DATE OF EXAM: 02/02/2023 COMPARISON: None HISTORY: Screening for cardiovascular disorder. 213.9 CT DLP: 74 mGycm Automated exposure control for dose reduction was used. CT CALCIUM SCORING Coronary calcium is a marker for plaque (fatty deposits) in a blood vessel or atherosclerosis (harden ing of the arteries). The presence and amount of calcium detected in a coronary artery by the CT sca n, indicates the presence and amount of atherosclerotic plaque. These calcium deposits appear years before the development of heart disease symptoms such as chest pain and shortness of breath. A calcium score is computed for each of the coronary arteries based upon the volume and density of th e calcium deposits. This can be referred to as your calcified plaque burden. It does not correspond directly to the percentage of narrowing in the artery but does correlate with the severity of the un derlying coronary atherosclerosis. PROCEDURE TECHNIQUE - Prospective Gating was used. Slice thickness: 3mm. Density threshold (HU): 130, Pixel threshold: 3, Algorithm: discrete. RESULTS Region: LM Calcium Score (Agatston): 5.52 Volume (mm3): 5.52 Mass (g): 1.84 Region: RCA Calcium Score (Agatston): 0 Volume (mm3): 0 Mass (g): 0 Region: LAD Calcium Score (Agatston): 20.98 Volume (mm3): 17.12 Mass (g): 5.71 Region: CX Calcium Score (Agatston): 0 Volume (mm3): 0 Mass (g): 0 Region: PDA Calcium Score (Agatston): 0 Volume (mm3): 0 Mass (g): 0 Total: Calcium Score (Agatston): 26.5 Volume (mm3): 22.64 Mass (g): 7.55 TOTAL CALCIUM SCORE: 26.5 Small pericardial effusion. There are hypodense lesions within the liver partially included in the fi eld-of-view measuring 14 Hounsfield units. There also is a cyst left lobe hepatic calcification. Mild emphysematous changes are seen with interlobular septal thickening at the left lung base compatible with very mild chronic interstitial lung disease. IMPRESSION: Calcium Score: 26.5 Implication: Definite, at least mild atherosclerotic plaque. Risk of Coronary Artery Disease: Mild or minimal risk of coronary artery disease. 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 Hepatic lesions most typical of hepatic cysts. Small pericardial effusion. CALCIUM SCORE IMPLICATION RISK OF C ORONARY ARTERY DISEASE 0 No identifiable plaque Very low, generally less than 5% 1-10 Minimal identifiable plaque Very unlikely, less than 10% 11-100 Definite, at least mild atherosclerotic plaque Mild or m inimal coronary narrowings likely 101-400 Definite, at least moderate atherosclerotic plaque Mild coronary ar kobe disease highly likely, significant narrowing possible 401 or Higher Extensive atherosclerotic plaque High lik elihood of at least one significant coronary narrowing
== END | disposition home or self-care (01) ==
LOC: RADCTMAIN 13:10
PROVIDERS: ATTEND Internal Medicine
DX: Z13.6 Encounter for screening for cardiovascular disorders (principal); I25.10 Atherosclerotic heart disease of native coronary artery without angina pectoris; J44.9 Chronic obstructive pulmonary disease, unspecified; J84.112 Idiopathic pulmonary fibrosis; K76.89 Other specified diseases of liver; I31.39 Other pericardial effusion (noninflammatory)
CPT/HCPCS: 75571

== ENCOUNTER → 2023-08-23 | Outpatient (CLI) | payer MEDICARE ==
--- NOTE | 2023-08-29 19:14 | MM ---
Reason for Exam: Screening (asymptomatic). Last mammogram was performed 1 year(s) and 1 month(s) ago. Patient History: Menarche at age 11. First Full-Term at age 23. Left ovary removed at age 69. Right ovary removed at age 69. Hysterectomy at age 37. Postmenopausal. Patient has history of breast feeding. Patient used Estrogen for 12 years. Patient used Hormonal Contraceptives for 35 years. Benign Excisional Biopsy on the right side. Benign Excisional Biopsy on the left side. 11/05/2004, Benign Stereotactic Core Biopsy on the right side. 12/14/2001, Benign Stereotactic Core Biopsy on the right side. Paternal grandmother had breast cancer, age 80. Paternal aunt had breast cancer, age 40. Risk Values: Becka 5 year model risk: 2.5%. NCI Lifetime model risk: 4.5%. Prior Study Comparison: 07/09/2021 Bilateral Screening Mammogram, [facility]. 07/11/2022 Bilateral MG 3D screening mammo w/cad, [facility]. 07/15/2022 Left MG 3D work up w/cad LT, [facility]. Tissue Density: The breast tissue is heterogeneously dense. This may lower the sensitivity of mammography. Findings: Analyzed By CAD. 2 microclips within the right breast redemonstrated. Unchanged bilateral areas of asymmetric density. There is no suspicious group of microcalcifications or new suspicious mass in either breast. Overall Assessment: Benign, BI-RAD 2 Management: Screening Mammogram of both breasts in 1 year. . Patient should continue monthly self-breast exams. A clinical breast exam by your physician is recommended on an annual basis. This exam should not preclude additional follow-up of suspicious palpable abnormalities. Note on Becka scores and lifetime risk: 1. A Becka score greater than 3% is considered moderate risk. If this is the case, consider specialist referral to assess eligibility for a risk reducing agent. 2. If overall lifetime risk for the development of breast cancer is 20% or higher, the patient may qualify for future screening with alternating mammogram and breast MRI. Electronically signed and approved by: Shelley Keys M.D. Radiologist
== END | disposition home or self-care (01) ==
LOC: RADMAMWWP 16:09
PROVIDERS: ATTEND Family Medicine
DX: Z12.31 Encounter for screening mammogram for malignant neoplasm of breast (principal); Z78.0 Asymptomatic menopausal state; Z80.3 Family history of malignant neoplasm of breast
CPT/HCPCS: 77063; 77067

== ENCOUNTER → 2024-09-17 | Outpatient (CLI) | payer MEDICARE ==
--- NOTE | 2024-09-17 11:10 | MM ---
Reason for Exam: Screening (asymptomatic). Last mammogram was performed 1 year(s) and 1 month(s) ago. Patient History: Menarche at age 11. First Full-Term at age 23. Left ovary removed at age 69. Right ovary removed at age 69. Hysterectomy at age 37. Postmenopausal. Patient has history of breast feeding. Patient used Estrogen for 12 years. Patient used Hormonal Contraceptives for 35 years. Benign Excisional Biopsy on the right side. Benign Excisional Biopsy on the left side. 11/05/2004, Benign Stereotactic Core Biopsy on the right side. 12/14/2001, Benign Stereotactic Core Biopsy on the right side. Paternal grandmother had breast cancer, age 80. Paternal aunt had breast cancer, age 40. Risk Values: Becka 5 year model risk: 2.5%. NCI Lifetime model risk: 4.1%. Prior Study Comparison: 07/11/2022 Bilateral MG 3D screening mammo w/cad, [facility]. 07/15/2022 Left MG 3D work up w/cad , [facility]. 08/23/2023 Bilateral MG 3D screening mammo w/cad, [facility]. Tissue Density: The breasts are heterogeneously dense, which may obscure small masses. Findings: Analyzed By CAD. There are 2 mammotome biopsy clips in the right breast redemonstrated. There is benign appearing vascular calcification bilaterally redemonstrated. There is no suspicious new group of microcalcifications or new suspicious mass in either breast. Overall Assessment: Benign, BI-RAD 2 Management: Screening Mammogram of both breasts in 1 year. . Patient should continue monthly self-breast exams. A clinical breast exam by your physician is recommended on an annual basis. This exam should not preclude additional follow-up of suspicious palpable abnormalities. Note on Becka scores and lifetime risk: 1. A Becka score greater than 3% is considered moderate risk. If this is the case, consider specialist referral to assess eligibility for a risk reducing agent. 2. If overall lifetime risk for the development of breast cancer is 20% or higher, the patient may qualify for future screening with alternating mammogram and breast MRI. [facility], , 09/17/2024 11:06 AM. Electronically signed and approved by: Jordi Fiore M.D.
--- NOTE | 2024-09-17 11:51 | BD ---
EXAMINATION TYPE: Axial Bone Density DATE OF EXAM: 09/17/2024 CLINICAL HISTORY: 79 years old Female. ICD-10 CODE: Z780 ASYMPTOMATIC MENOP , Additional History: Height: 60.5 Weight: 163.6 FRAX RISK QUESTIONS: Alcohol (3 or more units per day): no Family History (Parent hip fracture): no Glucocorticoids (More than 3mos): no (Ex: prednisone, prednisolone, methylprednisolone, dexamethasone, and hydrocortisone). History of Fracture in Adulthood: no Secondary Osteoporosis: 1. Type 1 Diabetes: no 2. Hyperthyroidism: no 3. Menopause before 45: no 4. Malnutrition: no 5. Chronic liver disease: no Rheumatoid Arthritis: yes Current Tobacco Use: no RISK FACTORS HISTORY OF: Hip Fracture (Right/Left): no Spine Fracture: no History of Wrist Fracture: RT Wrist When: age 12 Surgery to Spine/Hip(right/left)/Wrist (right/left): L4-L5 Fusion When: about 8 years ago MEDICATIONS: Thyroid Medications: Levothyroxine How Long: past 10 years Osteoporosis Medications:no EXAM MEASUREMENTS: Bone mineral densitometry was performed using the [employer] System. Bone mineral density about the R hip (g/cm2): 1.123 Bone mineral density about the L hip (g/cm2): 1.162 T Score values are as follows: -----R Neck: -0.4 -----L Neck: -0.4 -----R Total: 0.9 -----L Total: 1.2 Z Score values are as follows: -----R Neck: 1.6 -----L Neck: 1.5 -----R Total: 2.7 -----L Total: 3.0 Bone mineral density has:increased 0.1 % since study of: 09/15/2022 Bone mineral density about the L Wrist (g/cm2): 0.638 T Score values are as follows: -----Dist. R+U: -0.8 -----Prox. R+U: -0.3 -----Radius total: -0.6 Z Score values are as follows: -----Dist. R+U: 1.9 -----Prox. R+U: 2.4 -----Radius total: 2.1 Bone mineral density has: increased 11.3 % since study of: 09/15/2022 FRAX%s: The graph provided illustrates a 11.8% chance for a major osteoporotic fx and a 1.8% chance f or the hips probability for fx in 10 years time. IMPRESSION: Normal (Values between +1 and -1 indicate normal bone mass). Consider repeating this study in 5 year s or sooner if there is some new clinical indication. NOTE: T-SCORE=SD OF THE YOUNG ADULT MEAN. [facility], , 09/17/2024 11:49 AM
== END | disposition home or self-care (01) ==
LOC: RADMAMWWP 10:46
PROVIDERS: ATTEND Family Medicine
DX: Z12.31 Encounter for screening mammogram for malignant neoplasm of breast (principal); Z78.0 Asymptomatic menopausal state; Z90.722 Acquired absence of ovaries, bilateral; Z80.3 Family history of malignant neoplasm of breast; R92.333 Mammographic heterogeneous density, bilateral breasts
CPT/HCPCS: 77063; 77067; 77080